=== PATIENT | male | born 1970 | race African-American/Black ===

== ENCOUNTER 2017-12-20 12:18 | Emergency (ER) | payer MEDICARE, OTHER ==
[~2017-12-20] VITALS: Ht 172.7 cm; Wt 80.0 kg
[2017-12-20 12:22] VITALS: BP 116/78; PULSE 93; RESP 14; TEMP 98.5; O2SAT 98
--- NOTE | 2017-12-20 12:47 | PD ---
HPI Chief Complaint: ENT Complaint Time Seen by Provider: 12:46 Travel History International Travel<30 days: No Contact w/Intl Traveler<30days: No Traveled to known affect area: No History of Present Illness HPI 47-year-old Afro-[place] male presents the emergency department with 2 day history of worsening left-sided ear pain. The patient is legally deaf. 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 He had difficulty sleeping last night secondary to the pain. Patient denies fever or chills. He states however that it hurts more when he opens his jaw on the left side. Patient denies dental pain. He denies any associated cough, nausea, vomiting, or diarrhea. He denies any injury to the area. He has no known drug allergies. [facility] Social History Alcohol Use: Yes Tobacco Use: No Substance Use: No Allergies-Medications (Allergen,Severity, Reaction): Coded Allergies: No Known Allergies (Unverified , 12/20/17) Reported Meds & Prescriptions Reported Meds & Active Scripts Active Cipro (Ciprofloxacin HCl) 500 Mg Tab 500 Mg PO BID 7 Days Ibuprofen 800 Mg Tab 800 Mg PO Q8H PRN Cipro Hc Otic Drops (Ciprofloxacin/Hydrocortisone) 0.2-1% Susp 3 Drop LEFT EAR BID Review of Systems Except as stated in HPI: all other systems reviewed are Neg General / Constitutional: No: Fever, Chills Eyes: No: Diploplia, Blurred Vision, Photophobia, Drainage, Redness, Foreign Body Sensation, Pain, Tearing, Visual changes HENT: Positive: Ear Discharge, Earache, No: Headaches, Vertigo, Lightheadedness , Sore Throat, Rhinitis, Rhinorrhea, Congestion, Nosebleed, Neck Stiffness, Neck Pain, Masses, Gingival Bleeding, Dental Difficulties Cardiovascular: No: Chest Pain or Discomfort Respiratory: No: Cough, Shortness of Breath, Wheezing, Sneezing Gastrointestinal: No: Nausea, Vomiting, Diarrhea, Abdominal Pain Genitourinary: No: Dysuria Musculoskeletal: No: Pain Skin: No Rash Neurologic: No: Weakness Psychiatric: No: Depression Endocrine: No: Polydipsia Hematologic/Lymphatic: No: Easy Bruising Physical Exam Narrative GENERAL: Patient appears in mild distress. SKIN: Warm and dry. Normal color. Normal turgor. HEAD: Atraumatic. Normocephalic. EYES: Pupils equal and round. No scleral icterus. No injection or drainage. ENT: No nasal bleeding or discharge. Mucous membranes pink and moist. Patient has pain with movement of the left auricle. He has pain with palpation to the preauricular region. Examination of the ear canal shows a slightly swollen with yellowish green drainage noted. TM is difficult to see due to the drainage. Patient is very tender with any motion of the auricle. Pharynx is clear. Airway is patent. NECK: Trachea midline. No JVD. CARDIOVASCULAR: Regular rate and rhythm. RESPIRATORY: No accessory muscle use. Clear to auscultation. Breath sounds equal bilaterally. GASTROINTESTINAL: Abdomen soft, non-tender, nondistended. Hepatic and splenic margins not palpable. MUSCULOSKELETAL: Extremities without clubbing, cyanosis, or edema. No obvious deformities. NEUROLOGICAL: Awake and alert. No obvious cranial nerve deficits. Motor grossly within normal limits. Five out of 5 muscle strength in the arms and legs. Normal speech. PSYCHIATRIC: Appropriate mood and affect; insight and judgment normal. Data Data Last Documented VS Vital Signs Date Time Temp Pulse Resp B/P (MAP) Pulse Ox O2 Delivery O2 Flow Rate FiO2 12/20/17 12:22 98.5 93 14 116/78 (91) 98 Room Air Orders Orders Ibuprofen (Motrin) (12/20/17 13:00) Acetaminophen (Tylenol) (12/20/17 13:00) MDM Medical Decision Making Medical Screen Exam Complete: Yes Emergency Medical Condition: Yes Differential Diagnosis Otitis media. TMJ syndrome. Otitis externa. Dental abscess. Narrative Course Patient appears to have a otitis externa based on my history and physical. Patient will be treated with both oral Cipro 500 mg twice a day 7 days as well as Cipro HC optic drops. These drops are to be placed twice daily for the next week. Patient is given ibuprofen 800 mg one by mouth now and a prescription for one 3 times a day when necessary #30. Patient should follow-up with his primary care physician if symptoms continue or return to emergency department as needed. Diagnosis Primary Impression: Otitis externa, left Qualified Codes: H60.332 - Swimmer's ear, left ear Referrals: Primary Care Physician Patient Instructions: General Instructions, Otitis Externa (ED) Additional Instructions: Patient appears to have a otitis externa based on my history and physical. Patient will be treated with both oral Cipro 500 mg twice a day 7 days as well as Cipro HC optic drops. These drops are to be placed twice daily for the next week. Patient is given ibuprofen 800 mg one by mouth now and a prescription for one 3 times a day when necessary #30. Patient should follow-up with his primary care physician if symptoms continue or return to emergency department as needed. Scripts Ciprofloxacin (Cipro) 500 Mg Tab 500 MG PO BID for Infection for 7 Days, #14 TAB 0 Refills Prov: Bc Boyce MD 12/20/17 Ibuprofen (Ibuprofen) 800 Mg Tab 800 MG PO Q8H Y for Pain/Inflammation, #30 TAB 0 Refills Prov: Bc Boyce MD 12/20/17 Ciprofloxacin-Hydrocortisone Otic Drops (Cipro Hc Otic Drops) 0.2-1% Susp 3 DROP LEFT EAR BID for Infection, #1 BOTTLE 0 Refills Prov: Bc Boyce MD 12/20/17 Disposition: 01 DISCHARGE HOME Condition: Stable Baudilio López Dec 20, 2017 12:47
[2017-12-20] MEDS ORDERED: IBUP1TAB7 PO (12:53)
[2017-12-20] MEDS ORDERED: CIPRHC10A LEFT EAR (12:53)
[2017-12-20] MEDS ORDERED: CIPR-9 PO (12:54)
[2017-12-20] MEDS ORDERED: ACETAMINOPHEN 325 MG TAB PO ONE (13:00)
[2017-12-20] MEDS ORDERED: IBUPROFEN 800 MG TAB PO ONE (13:00)
== END 2017-12-20 13:52 | disposition home or self-care (01) ==
LOC: NEPD 12:18
DX: H60.332 Swimmer's ear, left ear (principal); H91.8X9 Other specified hearing loss, unspecified ear
CPT/HCPCS: 99283